=== PATIENT | female | born 1990 | race African-American/Black ===

== ENCOUNTER 2016-05-01 00:06 | Emergency (ER) ==
[2016-05-01] MEDS ORDERED: TORADOL IM ONE (01:36)
[2016-05-01] MEDS ORDERED: NORCO-7.5 PO ONE (01:36)
--- NOTE | 2016-05-01 01:41 | PROVIDER DOCUMENTATION ---
HPI-Female /OB/Breast - General Chief Complaint: Female Stated Complaint: FEMALE Time Seen by Provider: 05/01/16 00:40 Source: reports: patient Allergies/Adverse Reactions: Patient Allergies Allergy/AdvReac Type Severity Reaction Status Date / Time No Known Allergies Allergy Verified 05/01/16 00:20 Home Medications: Home Medication List Medication Instructions Recorded Confirmed Last Taken Type Hydrocodone/Acetaminophen [[place] 1 each PO Q4-6H PRN PRN #10 tablet 05/01/16 Unknown Rx 7.5-325 Tablet] - History of Present Illness-Female /OB Nature of Presenting Problem: Pt is a 26 yof who presents to ER with CC of bilateral lower quadrant that has been intermittent for the past several months, but got significantly worse tonight and pt rates her pain 8/10. Pt is in a committed lesbian relationship, denies any heterosexual encounters, and has an IUD in place (since age 17 for irregular cycles) and denies as a possibility. Pt describes pain as a pressure that is worsened by walking/lifting. Pt denies vaginal bleeding but does have mild to moderate superpubic tenderness on palpation. Pt has hx of endometriosis and reports that her pain now feels similar. Pt has appointment with her OBGYN on Monday. Does patient report she is ?: No Location of complaint: reports: RLQ, LLQ Radiation: reports: none Quality of Pain: reports: pressure Severity in ED: reports: severe (8/10 tonight) Onset/Duration: reports: other (intermittent for the past "several months") Timing: reports: intermittent Vaginal Symptoms: reports: no symptoms. denies: abnormal bleeding, discharge, foul odor, itching, passing clots/tissue Vaginal Bleeding Amount: None Urinary Symptoms: reports: no symptoms Related Symptoms: reports: no symptoms Sexual intercourse history: reports: Single Partner (committed homosexual relationship) Contraception: reports: IUD Modifying Factors: worse with: other (walking; lifting) Associated Symptoms: reports: trouble walking. denies: anxiety, back/neck pain , chest pain, constipation, cough, diarrhea, dizziness, fatigue, fever/chills, muscle aches, nausea, sensory/motor loss, swelling/mass in abdomen, vomiting - LMP/ History Menstrual Status: irregular Prior sonogram results: IUP present CURRENT Problems: none Review of Systems - Adult - REVIEW OF SYSTEMS - ADULT Constitutional: denies: chills, fever, fatique, night sweats Eyes: reports: no symptoms reported Ears, Nose, Mouth & Throat: reports: no symptoms reported Cardiovascular: reports: no symptoms reported Respiratory: reports: no symptoms reported Gastrointestinal: reports: abdominal pain (superpubic pain). denies: constipation, diarrhea, nausea, poor appetite, vomiting Genitourinary: denies: dysuria, discharge, frequency, flank pain, frequent UTI's , hematuria Musculoskeletal: reports: no symptoms reported Integumentary: reports: no symptoms reported Neurological: reports: no symptoms reported Psychiatric: reports: no symptoms reported Endocrine: reports: no symptoms reported Hematologic/Lymphatic: reports: no symptoms reported Allergic/Immunologic: reports: no symptoms reported All Other Systems: Reviewed and Negative Past History - Adult - PAST MEDICAL HISTORY-ADULT Review of Records: reports: Nursing Assessment Review, Medications Reviewed Obstetrical/Gynecological: reports: endometriosis - PRIOR SURGERIES/PROCEDURES Surgical/Procedure History: reports: reviewed, not pertinent - PRIOR HOSPITALIZATIONS Prior Hospitalizations: reports: for other non-related - IMMUNIZATION STATUS Childhood Immunizations: See Nurse Assessment Flu Vaccine: See Nurse Assessment Physical Exam-General - PHYSICAL EXAM-ADULT Initial Vital Signs Reviewed: Yes - CONSTITUTIONAL General Appearance: appears well, alert, mild distress. negative: obese, anxious, lethargic, slow to respond, obtunded, combative - GASTROINTESTINAL (ABDOMEN) Abdominal Exam: normal bowel sounds, soft, tenderness (superpubic). negative: non tender, abnormal bowel sounds, distended, mass - GENITOURINARY Female Genitalia/Pelvic Exam: negative: active bleeding, blood - MUSCULOSKELETAL Back Exam: no CVA tenderness, no vertebral tenderness. negative: CVA tenderness , decreased range of motion, ecchymosis, muscle spasm, swelling, vertebral tenderness Extremity: normal range of motion, non-tender, normal gait. negative: erythema , inflammation, swelling, tenderness - NEUROLOGIC Neurologic: grossly normal, no motor/sensory deficits - PSYCHIATRIC Psych/Mental Status: normal mood/affect, normal thought content, normal thought process, oriented x 3 Progress - PLAN OF CARE/RESULTS Progress/Plan/Lab Results: Vital Signs - 24 hr 05/01/16 00:10 Temperature 98.2 F Pulse Rate 79 Respiratory 22 Rate Blood Pressure 170/88 O2 Sat by Pulse 100 Oximetry Orders Category Date Time Status Hydrocodone/APAP 7.5 mg/325 mg [[place]-7.5] Med 05/01/16 01:36 Discontinued 1 each PO NOW ONE Ketorolac [Toradol] Med 05/01/16 01:36 Discontinued 60 mg IM NOW ONE Departure - Departure Time of Disposition Order: 01:48 DIAGNOSIS: Pelvic pain, Endometriosis Disposition: HOME 01 Certified Medical Emergency: Emergent Condition: Stable Additional Instructions: see your Gynocologist ED Follow Up Instructions: You have been treated by a care provider in the Emergency Department. These instructions are being provided to you so you can have an understanding of how to care for yourself upon discharge. Upon discharge from the Emergency Department, you are responsible for making arrangements for follow-up care by a physician of your choice. Take all prescribed medications as directed. Return to the Emergency Department immediately for any new or worsening symptoms. You may call the Physician Referral phone number at [phone] to obtain a list of Physicians who are taking new patients.tomorrow as scheduled Prescriptions: Hydrocodone/Acetaminophen [[place] 7.5-325 Tablet] 1 each PO Q4-6H PRN PRN #10 tablet PRN Reason: Pain Referrals: Annel Shearer CRNP [Primary Care Provider] - Instructions: Pelvic Pain, Female, [id number], Endometriosis Attestation - Scribe Verification/Attestation Scribe:: Mika Yanez Acting as Scribe for:: Kenn Luna Scribe documention review:: This chart was documented by a scribe and accurately reflects the service the provider performed and the decisions made by the provider.
--- NOTE | 2016-05-01 01:42 | PROVIDER DOCUMENTATION ---
HPI-Abdominal Pain/GI Problem - General Chief Complaint: Female Stated Complaint: FEMALE Time Seen by Provider: 05/01/16 00:40 Source: patient Allergies/Adverse Reactions: Patient Allergies Allergy/AdvReac Type Severity Reaction Status Date / Time No Known Allergies Allergy Verified 05/01/16 00:20 Home Medications: Home Medication List Medication Instructions Recorded Confirmed Last Taken Type Hydrocodone/Acetaminophen [[place] 1 each PO Q4-6H PRN PRN #10 tablet 05/01/16 Unknown Rx 7.5-325 Tablet] - History of Present Illness-ABD Nature of Presenting Problems: pt has hx of chronic pelvic pain from endometriosis and this has worsened over the last 2-3 days despite her usual medications. She had an IUD placed to try to help and is in a lesbian relationship and adamantly denies any [id number] of . The pain is moderate constant and dull and does not radiate. No fevers Review of Systems - Adult - REVIEW OF SYSTEMS - ADULT Constitutional: denies: chills, fever Eyes: denies: discharge Ears, Nose, Mouth & Throat: denies: ear pain, sinus problem, throat pain Cardiovascular: denies: chest pain Respiratory: denies: cough, shortness of breath Genitourinary: denies: dysuria, discharge, flank pain Musculoskeletal: denies: back pain Integumentary: denies: rash Neurological: denies: headache/migraines Psychiatric: reports: no symptoms reported Endocrine: reports: no symptoms reported Hematologic/Lymphatic: reports: no symptoms reported Allergic/Immunologic: reports: no symptoms reported All Other Systems: Reviewed and Negative Past History - Adult - PAST MEDICAL HISTORY-ADULT Review of Records: reports: Old Records Reviewed, Nursing Assessment Review, Medications Reviewed, Social history reviewed & non-contributory. Major Childhood Illnesses: reports: denies history Cardiovascular: reports: denies history Respiratory: reports: denies history Gastrointestinal: reports: denies history Obstetrical/Gynecological: reports: endometriosis Genitourinary: reports: denies history Musculoskeletal: reports: denies history Neurological: reports: denies history Endocrine/Immune: reports: denies history Other Conditions: reports: denies history - PRIOR SURGERIES/PROCEDURES Surgical/Procedure History: reports: reviewed, not pertinent - PRIOR HOSPITALIZATIONS Prior Hospitalizations: reports: for other non-related - IMMUNIZATION STATUS Childhood Immunizations: See Nurse Assessment Flu Vaccine: See Nurse Assessment - FAMILY HISTORY Family History: reviewed, not pertinent - SOCIAL HISTORY Smoking: denies Substance Use: none/never Alcohol Use Frequency: never Living Situation: family Physical Exam-General - PHYSICAL EXAM-ADULT Initial Vital Signs Reviewed: Yes - CONSTITUTIONAL General Appearance: appears well, alert, no apparent distress - EYES Eyes: pink conjunctivae. negative: scleral icterus - HEAD, EARS, NOSE, MOUTH & THROAT HENMT: normocephalic/atraumatic - NECK Neck: non-tender, full range of motion, supple, normal inspection - RESPIRATORY Respiratory: chest non-tender, lungs clear, normal breath sounds, no pleuratic chest pain, no respiratory distress, no accessory muscle use - CARDIOVASCULAR Cardiovascular: regular rate, rhythm, no murmur - GASTROINTESTINAL (ABDOMEN) Abdominal Exam: normal bowel sounds, soft, no organomegaly, no pulsatile mass. negative: non tender (mild suprapubic tenderness), guarding, rigid, rebound, hepatomegaly, spleenomegaly - MUSCULOSKELETAL Back Exam: normal inspection, no CVA tenderness, no vertebral tenderness - SKIN Integumentary: normal color, normal turgor, warm/dry - NEUROLOGIC Neurologic: grossly normal, no motor/sensory deficits - PSYCHIATRIC Psych/Mental Status: normal mood/affect, normal thought content, normal thought process, oriented x 3 Progress - PLAN OF CARE/RESULTS Progress/Plan/Lab Results: Orders Category Date Time Status Hydrocodone/APAP 7.5 mg/325 mg [[place]-7.5] Med 05/01/16 01:36 Discontinued 1 each PO NOW ONE Ketorolac [Toradol] Med 05/01/16 01:36 Discontinued 60 mg IM NOW ONE Vital Signs Temp Pulse Resp BP Pulse Ox 05/01/16 02:10 98.3 F 94 H 18 149/79 98 05/01/16 00:10 98.2 F 79 22 170/88 100 No Known Allergies Allergy (Verified 05/01/16 00:20) Hydrocodone/Acetaminophen [[place] 7.5-325 Tablet] 1 each PO Q4-6H PRN PRN #10 tablet 05/01/16 Departure - Departure Time of Disposition Order: 01:40 DIAGNOSIS: Pelvic pain, Endometriosis Disposition: HOME 01 Certified Medical Emergency: Emergent Condition: Stable Additional Instructions: see your Gynocologist ED Follow Up Instructions: You have been treated by a care provider in the Emergency Department. These instructions are being provided to you so you can have an understanding of how to care for yourself upon discharge. Upon discharge from the Emergency Department, you are responsible for making arrangements for follow-up care by a physician of your choice. Take all prescribed medications as directed. Return to the Emergency Department immediately for any new or worsening symptoms. You may call the Physician Referral phone number at [phone] to obtain a list of Physicians who are taking new patients.tomorrow as scheduled Prescriptions: Hydrocodone/Acetaminophen [[place] 7.5-325 Tablet] 1 each PO Q4-6H PRN PRN #10 tablet PRN Reason: Pain Referrals: Annel Shearer CRNP [Primary Care Provider] - Instructions: Pelvic Pain, Female, [id number], Endometriosis
[2016-05-01 02:11] VITALS: BP 149/79
== END 2016-05-01 02:11 | disposition home or self-care (01) ==
LOC: ED 00:06
DX: N80.9 Endometriosis, unspecified (principal); R10.2 Pelvic and perineal pain; R10.31 Right lower quadrant pain; R10.32 Left lower quadrant pain; R10.819 Abdominal tenderness, unspecified site; R26.2 Difficulty in walking, not elsewhere classified; R10.9 Unspecified abdominal pain
CPT/HCPCS: J1885